=== PATIENT | female | born 2000 | race African-American/Black ===

== ENCOUNTER 2023-04-19 15:59 | Emergency (ER) | payer SELFPAY ==
[~2023-04-19] VITALS: Ht 167.6 cm; Wt 91.4 kg
[2023-04-19] VITALS (9 sets, daily range): BP systolic 144–157; BP diastolic 76–91; PULSE 81–86; TEMP 98–99
[~2023-04-19 15:59] MED LIST: KENALOG DENTAL P5 GM DT; TRIAMCINOLONE A15 G3 TP
[2023-04-19 17:07] LABS: MEAN CELL VOLUME 68 fl (80.0-100.0); MEAN CORPUSCULAR HGB CONC 27 g/dl (33.0-37.0); PLATELET COUNT 333 K/mm3 (130-400); RED BLOOD COUNT 2.99 M/mm3 (4.10-5.30); REDCELL DISTRIBUTION WIDTH-CV 34.5 % (11.5-14.5)
[2023-04-19 17:20] LABS: ALBUMIN 3.7 gm/dL (3.5-5.0); BILIRUBIN,TOTAL 0.4 mg/dL (0.2-1.2); CREATININE, serum 0.76 mg/dL (0.57-1.11); POTASSIUM 4.1 mmol/L (3.5-4.5)
[2023-04-19 17:35] LABS: COLLECTION METHOD CLEAN CATCH
[2023-04-19 17:39] LABS: HEMATOCRIT 20.4 % (37.0-47.0); MEAN CORPUSCULAR HEMOGLOBIN 18 pg (27-31)
[2023-04-19 17:41] LABS: HEMOGLOBIN 5.5 g/dl (12.5-16.0)
[2023-04-19 18:16] LABS: BAND 5 % (0-10); EOSINOPHIL 2 % (0-4); HYPOCHROMIA 3+; LYMPHOCYTE 19 % (20.0-51.0); NEUTROPHILS 58 % (42.0-75.2); PLATELET ESTIMATE NORMAL (NORMAL); POIKILOCYTOSIS 3+
[2023-04-19 18:18] LABS: MICROCYTOSIS 2+; TEAR DROP CELLS 3+
[2023-04-19 18:21] LABS: OVALOCYTES 2+
[2023-04-19 18:22] LABS: SCHISTOCYTES 1+
[2023-04-19 18:50] LABS: URINE APPEARANCE Clear (CLEAR/HAZY); URINE COLOR Yellow (YELLOW); URINE GLUCOSE Negative (NEGATIVE); URINE PROTEIN(semi-quant) Negative (NEGATIVE)
[2023-04-19 18:51] LABS: SQUAMOUS EPITHELIAL 0-2 /hpf (0-10); URINE BACTERIA None Seen /hpf (NONE SEEN); URINE BLOOD Negative (NEGATIVE); URINE KETONE Negative (NEGATIVE); URINE NITRATE Negative (NEGATIVE); URINE RBC 0-2 /hpf (0-2)
[2023-04-19] MEDS ORDERED: Ondansetron 4 MG/2 ML VIAL IV ONE (21:00)
[2023-04-19] MEDS ORDERED: Home Ondansetron ODT 4 MG #2 ODT/PACK PO ONE (21:00)
[2023-04-19] MEDS ORDERED: ZOFRAN ODT4 MG PO (21:27)
[2023-04-19] MEDS ORDERED: Ibuprofen 600 MG TAB PO ONE (21:30)
== END 2023-04-19 21:44 | disposition home or self-care (01) ==
LOC: COL.ER 15:59
PROVIDERS: Physician Assistant
DX: D64.9 Anemia, unspecified (principal); N92.0 Excessive and frequent menstruation with regular cycle; R11.2 Nausea with vomiting, unspecified; F17.200 Nicotine dependence, unspecified, uncomplicated
CPT/HCPCS: J2405; P9016

== ENCOUNTER 2023-07-08 12:02 | Emergency (ER) | payer SELFPAY ==
[~2023-07-08] VITALS: Ht 165.1 cm; Wt 95.5 kg
[~2023-07-08 12:02] MED LIST changes: +ZOFRAN ODT4 MG PO
[2023-07-08] MEDS ORDERED: TAMIFLU 75MG75 MG PO (13:07)
[2023-07-08 13:29] VITALS: BP 118/64; PULSE 92; TEMP 98.2
== END 2023-07-08 13:30 | disposition home or self-care (01) ==
LOC: COL.ER 12:02
DX: J10.1 Influenza due to other identified influenza virus with other respiratory manifestations (principal)